=== PATIENT | female | born 1980 | race Caucasian/White ===

== ENCOUNTER → 2018-03-30 14:56 | Outpatient (CLI) | payer MEDICAID, SELFPAY ==
[2018-04-05 13:33] LABS: HPV Reflexed? NOT INDICATED
== END ==
PROVIDERS: Visit Provider Obstetrics & Gynecology
DX: Z12.4 Encounter for screening for malignant neoplasm of cervix (principal)
CPT/HCPCS: 88175; G0145

== ENCOUNTER → 2018-04-27 16:11 | Outpatient (CLI) | payer MEDICAID, SELFPAY ==
[2018-04-30 16:06] LABS: Alternaria tenuis <0.10 kU/L (Class 0); Ash, White <0.10 kU/L (Class 0); Aspergillus fumigatus <0.10 kU/L (Class 0); Bermuda Grass <0.10 kU/L (Class 0); Birch <0.10 kU/L (Class 0); Black Walnut 0.12 kU/L (Class 0/I); Cat Hair / Dander,Stand <0.10 kU/L (Class 0); Cedar, Mountain 0.12 kU/L (Class 0/I); Cladosporium herbarum <0.10 kU/L (Class 0); Cockroach, American <0.10 kU/L (Class 0); Cottonwood 0.27 kU/L (Class 0/I); D farinae Mite <0.10 kU/L (Class 0); D pteronyssinus <0.10 kU/L (Class 0); Dog Epithelia <0.10 kU/L (Class 0); Elm, American White <0.10 kU/L (Class 0); Immunoglobulin E 36 IU/mL (0-100); Maple/Box Elder <0.10 kU/L (Class 0); Mulberry, White <0.10 kU/L (Class 0); Oak, White <0.10 kU/L (Class 0); Pecan <0.10 kU/L (Class 0); Penicillium Notatum <0.10 kU/L (Class 0); Pigweed, Rough <0.10 kU/L (Class 0); Ragweed, Short/Common <0.10 kU/L (Class 0); Russian Thistle <0.10 kU/L (Class 0); Sheep Sorrel <0.10 kU/L (Class 0); Sycamore, American <0.10 kU/L (Class 0); Timothy Grass <0.10 kU/L (Class 0)
[2018-05-01 08:35] LABS: Mouse Urine <0.10 kU/L (Class 0)
--- OUTSIDE RECORDS SUMMARY | 2018-06-23 02:25 | XMS RPT_ITS ---
:1980 Author Organization OHIP Care Team Providers Name Role Phone Chiquita Acosta Attending Unavailable Chiquita Acosta Referring Unavailable Primay Care Physicia, No Primary Care Unavailable [place] Acosta Attending Unavailable Primay Care Physicia, No Primary Care Unavailable Moshe Quinn Attending Unavailable Moshe Quinn Referring Unavailable Primay Care Physicia, No Primary Care Unavailable PROBLEMS PROBLEMS DATE TYPE CONDITION / CODE ATTENDING STATUS SOURCE 05/10/2018 Unknown T78.40XA - [place] Active Ani Allergy, Moshe [facility] unspecified, Hospital initial Repository encounter / T78.40XA(ICD-10) 04/05/2018 Unknown Z12.4 - Chiquita Acosta Active Ani Encounter for Community screening for Hospital malignant Repository neoplasm of cervix / Z12.4(ICD-10) PROCEDURES PROCEDURES No Procedure Records FoundRESULTS RESULTS ,SERUM,HCG QUALI. Collected: Status: F Source: ANI 05/10/2018 3:[address] [facility] REPOSITORY TYPE CODE TESTS RESULT OUT OF REFERENCE UNITS RANGE LAB L700.6700 =>Qualitative mIU/mL Normal HCG Qual < 1 triggr LAB L700.7000 0-9 Nonpreg Negative Normal HCGSQUAL NEGATIVE Performed By: #### L700.6800 #### [place] [facility] [address] [place], [address] PROGESTERONE LEVEL Collected: 05/10/2018 Status: F Source: ANI 3:[address] [facility] REPOSITORY TYPE CODE TESTS RESULT OUT OF REFERENCE UNITS RANGE LAB L509.4001 See Comment ng/mL Progesterone Normal 1.71 Result Comment: Progesterone Reference Table: UNITS Female: Follicular 0.15 - 1.40 ng/mL Luteal 3.34 - 25.56 ng/mL Mid-luteal 4.44 - 28.03 ng/mL Postmenopausal 0.0 - 0.73 ng/mL : 1st Trimester 11.22 - 90.00 ng/mL 2nd Trimester 25.55 - 89.40 ng/mL 3rd Trimester 48.40 -422.50 ng/mL Performed By: #### L509.4001 #### [facility] [address] [place], [place], [address] ALLERGEN RESP. AREA 5 Collected: 04/27/2018 Status: F Source: DORENA 4:[address] [facility] REPOSITORY TYPE CODE TESTS RESULT OUT OF RANGE REFERENCE UNITS LAB L5500.8000 0-100 IU/mL Normal TOTAL igE 36 LAB L5500.9900 . Normal RAST COMMENT Comment Result Comment: Levels of Specific IgE Class Description of Class ----- < 0.10 0 Negative 0.10 - 0.31 0/I Equivocal/Low 0.32 - 0.55 I Low 0.56 - 1.40 II Moderate 1.41 - 3.90 III High 3.91 - 19.00 IV Very High 19.01 - 100.00 V Very High >100.00 Very High LAB L5510.0040 Class 0 kU/L CAT HAIR/DANDER Normal <0.10 LAB L5510.0070 Class 0 kU/L DOG EPITHELIA Normal <0.10 LAB L5520.0020 Class 0 kU/L D FARINAE MITE Normal <0.10 LAB L5520.0030 Class 0 kU/L D PTERONYSSINUS Normal <0.10 LAB L5540.0020 Class 0 kU/L BERMUDA GRASS Normal <0.10 LAB L5540.0190 Class 0 kU/L NILAM GRASS Normal <0.10 LAB L5550.0020 Class 0 kU/L ALTERNARIA TEN Normal <0.10 LAB L5550.0040 Class 0 kU/L ASPERGILLUS FUM Normal <0.10 LAB L5550.0140 Class 0 kU/L CLADOSPOR HERB Normal <0.10 LAB L5550.0340 Class 0 kU/L PEN Notatum Normal <0.10 LAB L5555.0380 Class 0 kU/L COCKROACH,AMER Normal <0.10 LAB L5555.0410 Class 0 kU/L Mouse Urine Normal <0.10 Result Comment: Performed at: - [facility] [address] [id number] Peoplesoft: Pj Diaz MD, Phone: [phone] LAB L5560.0050 Class 0 kU/L GUILLERMINA, Normal WHITE <0.10 LAB L5560.0100 Class 0 kU/L BIRCH Normal <0.10 LAB L5560.0110 Class 0/I kU/L High CEDAR, MOUNTAIN 0.12 LAB L5560.0140 Class 0/I kU/L High [place] 0.27 LAB L5560.0170 Class 0 kU/L ELM,AMER Normal WHITE <0.10 LAB L5560.0310 Class 0 kU/L Normal MAPLE/BOX ELDER <0.10 LAB L5560.0371 Class 0 kU/L Normal MULBERRY, WHITE <0.10 LAB L5560.0400 Class 0 kU/L OAK, Normal WHITE <0.10 LAB L5560.0440 Class 0 kU/L PECAN Normal <0.10 LAB L5560.0550 Class 0 kU/L Normal SYCAMORE, AMER <0.10 LAB L5560.0570 Class 0/I kU/L High BLACK WALNUT 0.12 LAB L5580.0210 Class 0 kU/L PIGWEED, Normal ROUGH <0.10 LAB L5580.0260 Class 0 kU/L RAGWEED Normal SH/COM <0.10 LAB L5580.0320 Class 0 kU/L SHEEP Normal SORREL <0.10 LAB L5580.0360 Class 0 kU/L INDIAN Normal THISTLE <0.10 Performed By: #### L5500.0700 #### [facility] (refer to report for specific site) refer to report for address and phone number MISCELLANEOUS LAB Collected: 04/27/2018 Status: F Source: ANI PROCEDURE 4:[address] [facility] REPOSITORY Order Comment: Test(s) Ordered: [id number] ALLERGEN PROFILE SER RT TYPE CODE TESTS RESULT OUT OF RANGE REFERENCE UNITS LAB L801.1541 Normal [facility] LAB TEST Result Comment: TEST RESULT UNITS REF INTERVAL Allergen Profile, Food-Basic Class Description 01 Levels of Specific IgE Class Description of Class ----- < 0.10 0 Negative 0.10 - 0.31 0/I Equivocal/Low 0.32 - 0.55 I Low 0.56 - 1.40 II Moderate 1.41 - 3.90 III High 3.91 - 19.00 IV Very High 19.01 - 100.00 V Very High >100.00 Very High M497-GmH Egg White <0.10 kU/L Class 0 Q995-TjW Milk <0.10 kU/L Class 0 Z707-PtT Codfish <0.10 kU/L Class 0 R735-OmZ Wheat <0.10 kU/L Class 0 B163-CcJ Peanut <0.10 kU/L Class 0 I381-EkC Soybean <0.10 kU/L Class 0 TESTING PERFORMED AT [facility]. ORIGINAL REPORT ON FILE IN LAB CONTAINS ADDITIONAL TEST SITE INFORMATION. Performed By: #### L801.1541 #### [facility] [address] [place], [address] PAP I-G W/RFX HRHPV Collected: 03/30/2018 Status: F Source: ANI 10:[address] [facility] REPOSITORY Order Comment: CYTOLOGY INFORMATION: - CLINICAL INFORMATION: - DATE LMP/MENOPAUSE: UNK/LACTATING LMP - COLLECTION VIAL: Thin Prep Vial - STUDIO TECHNICIAN VIDEO OPERATOR SOURCE: CERVICAL/ENDOCERVICAL - COLLECTION TECHNIQUE: BRUSH/SPATULA Specimen Comment: [id number] Specimen Comment: Source.............Cervix;Endocervix Specimen Comment: Other..............Lactating Specimen Comment: No. of containers..01 ThinPrep Vial TYPE CODE TESTS RESULT OUT OF RANGE REFERENCE UNITS LAB L7400.0800 . Normal DIAGN Comment Result Comment: NEGATIVE FOR INTRAEPITHELIAL LESION AND MALIGNANCY. THIS SPECIMEN WAS RESCREENED PART OF OUR DRILLING AND PRODUCTION SUPERINTENDENT PROGRAM. LAB L7400.0900 . Normal ADEQ Comment Result Comment: Satisfactory for evaluation. Endocervical and/or squamous metaplastic cells (endocervical component) are present. LAB L7400.1400 . Normal PERFORM Comment Result Comment: Obey Aviles, Order Entry Representative (ASCP) LAB L7400.1500 . Normal QC Comment REV Result Comment: Patricia Pastrana, Order Entry Representative (ASCP) LAB L7400.2575 . Normal TEST METHOD Comment Result Comment: This liquid based ThinPrep(R) pap test was screened with the use of an image guided system. LAB L7400.2600 . Normal . COMM LAB L7400.2700 . Normal PAPSMR Comment Result Comment: The Pap smear is a screening test designed to aid in the detection of premalignant and malignant conditions of the uterine cervix. It is not a diagnostic procedure and should not be used as the sole means of detecting cervical cancer. Both false-positive and false-negative reports do occur. LAB L7400.2800 . Normal HPV RFLX Comment Result Comment: The HPV DNA reflex criteria were not met with this specimen result therefore, no HPV testing was performed. Performed at: [facility] [place] [id number] Peoplesoft: Elizabeth Jean-Baptiste MD, Phone: [phone] Performed By: #### L7400.0350 #### [facility] (refer to report for specific site) refer to report for address and phone number ALLERGIES ALLERGIES DATE TYPE / CODE NAME / CODE REACTION SEVERITY SOURCE 02/13/2017 Drug No Known Unknown Ani [facility] Allergy/4160 Allergies/F00 Hospital 10379(SNOMED 8805081(RXNOR Repository CT) M) ENCOUNTERS ENCOUNTERS ADMIT/DISCHARGE ACCOUNT ADMITTING ENCOUNTER LOCATION SOURCE NUMBER CLASS 05/10/2018 [id number] Ambulatory Ani Ani 4 [facility] ing:LAB Repository 04/27/2018 [id number] Ambulatory [place] 1 [facility] ing:LAB Repository 03/30/2018 [id number] Ambulatory [place] 4 [facility] ing:LABSPEC Repository PAYERS PAYERS ENCOUNTER GUARANTOR PAYER SUBSCRIBER SOURCE 05/10/2018 MAUR[place] L Primary MAURA L [place] [id number] CANAL Insurance:[place] [facility] [id number] Hospital [address]Umc: [phone]) PLANPolicy Number: Repository [phone] () [id number] Date:0730-88-77LG [address] [address]: 05/10/2018 Secondary NOT GIVENUNK [place] Insurance:SELF PAY [facility] Number: Effective Repository Date:2018-05-10 04/27/2018 MAURA [id number] Primary MAURA NOTTDOB: [place] [facility], Insurance:[employer] [id number] [facility]ungo [facility] [address]Jeo: [facility] PLANPolicy Number: Repository () [id number] Date:[id number] [address]EJ: 04/27/2018 Secondary NOT GIVENUNK [place] Insurance:SELF PAY [facility] Number: Effective Repository Date:2018-04-27 03/30/2018 MAURA [id number] Primary MAURA NOTTDOB: [place] CANAL [address], Insurance:[employer] [id number] Pungo Hospital [address]Gyr: [facility] PLANPolicy Number: Repository () [id number] Date:[id number] [address]ENTER[facility] [address]WH: 03/30/2018 Secondary NOT GIVENUNK [place] Insurance:SELF PAY [facility] Number: Effective Repository Date:2018-03-30
== END ==
PROVIDERS: Referring Provider Otolaryngology; Visit Provider Otolaryngology
DX: T78.40XA Allergy, unspecified, initial encounter (principal)
CPT/HCPCS: 36415; 82785; 86003

== ENCOUNTER → 2018-05-10 15:06 | Outpatient (CLI) | payer MEDICAID, SELFPAY ==
[2017-02-13 05:36] VITALS: BMI 29.1
[2018-05-10 16:42] LABS: Pregnancy, Serum, hCG Quali. NEGATIVE Negative (0-9 Nonpreg)
[2018-05-10 16:47] LABS: Progesterone Level 1.71 ng/mL (See Comment)
--- OUTSIDE RECORDS SUMMARY | 2018-06-26 22:38 | XMS RPT_ITS ---
[...] T78.40XA - [place] Active Ani Allergy, Moshe Replaced By [facility] unspecified, Hospital initial Repository encounter / T78.40XA(ICD-10) 04/05/2018 Unknown Z12.4 - [place] Active Ani Encounter for Community screening for Hospital malignant Repository neoplasm of cervix / Z12.4(ICD-10) PROCEDURES PROCEDURES No Procedure Records FoundRESULTS RESULTS ,SERUM,HCG QUALI. Collected: Status: F Source: ANI 05/10/2018 3:24 PM [facility] REPOSITORY TYPE CODE TESTS RESULT OUT OF REFERENCE UNITS RANGE LAB L700.6700 =>Qualitative mIU/mL Normal HCG Qual < 1 triggr LAB L700.7000 0-9 Nonpreg Negative Normal HCGSQUAL NEGATIVE Performed By: #### L700.6800 #### [place] [facility] [address] [place], [address] PROGESTERONE LEVEL Collected: 05/10/2018 Status: F Source: ANI 3:24 PM [facility] REPOSITORY TYPE CODE TESTS RESULT OUT OF [...] -422.50 ng/mL Performed By: #### L509.4001 #### [facility] [address] [place], [place], [address] ALLERGEN RESP. AREA 5 Collected: 04/27/2018 Status: F Source: MONTROSE 4:33 PM [facility] REPOSITORY TYPE CODE TESTS RESULT OUT OF [...] <0.10 Result Comment: Performed at: - [facility] [address] [id number] Binder Chainstitch: Pj Diaz MD, Phone: [phone] LAB L5560.0050 Class 0 kU/L GUILLERMINA, Normal [...] SORREL <0.10 LAB L5580.0360 Class 0 kU/L ERITREAN Normal THISTLE <0.10 Performed By: #### L5500.0700 #### [facility] (refer to report for specific site) refer to report for address and phone number MISCELLANEOUS LAB Collected: 04/27/2018 Status: F Source: ANI PROCEDURE 4:33 PM [facility] REPOSITORY Order Comment: Test(s) Ordered: [id number] ALLERGEN PROFILE SER RT TYPE CODE TESTS RESULT OUT OF RANGE REFERENCE UNITS LAB L801.1541 Normal [facility] LAB TEST Result Comment: TEST RESULT UNITS REF INTERVAL Allergen Profile, Food-Basic Class Description 01 Levels of Specific IgE Class Description of Class ----- < 0.10 0 Negative 0.10 - 0.31 0/I Equivocal/Low 0.32 - 0.55 I Low 0.56 - 1.40 II Moderate 1.41 - 3.90 III High 3.91 - 19.00 IV Very High 19.01 - 100.00 V Very High >100.00 Very High Z902-BrK Egg White <0.10 kU/L Class 0 C127-QeP Milk <0.10 kU/L Class 0 F058-ByZ Codfish <0.10 kU/L Class 0 B101-KiQ Wheat <0.10 kU/L Class 0 W005-ZoW Peanut <0.10 kU/L Class 0 M574-TfQ Soybean <0.10 kU/L Class 0 TESTING PERFORMED AT [facility]. ORIGINAL REPORT ON FILE IN LAB CONTAINS ADDITIONAL TEST SITE INFORMATION. Performed By: #### L801.1541 #### [facility] [address] [place], [address] PAP I-G W/RFX HRHPV Collected: 03/30/2018 Status: F Source: ANI 10:30 AM [facility] REPOSITORY Order Comment: CYTOLOGY INFORMATION: - CLINICAL INFORMATION: - DATE LMP/MENOPAUSE: UNK/LACTATING LMP - COLLECTION VIAL: Thin Prep Vial - CARPENTRY PROFESSIONAL SOURCE: CERVICAL/ENDOCERVICAL - COLLECTION TECHNIQUE: BRUSH/SPATULA Specimen Comment: [id number] Specimen Comment: Source.............Cervix;Endocervix Specimen Comment: Other..............Lactating Specimen Comment: No. of containers..01 ThinPrep Vial TYPE CODE TESTS RESULT OUT OF RANGE REFERENCE UNITS LAB L7400.0800 . Normal DIAGN Comment Result Comment: NEGATIVE FOR INTRAEPITHELIAL LESION AND MALIGNANCY. THIS SPECIMEN WAS RESCREENED PART OF OUR EVENT PROMOTIONS COORDINATOR PROGRAM. LAB L7400.0900 . Normal ADEQ Comment Result Comment: Satisfactory for evaluation. Endocervical and/or squamous metaplastic cells (endocervical component) are present. LAB L7400.1400 . Normal PERFORM Comment Result Comment: Obey Aviles, Director Of Primary (ASCP) LAB L7400.1500 . Normal QC Comment REV Result Comment: Patricia Pastrana, Director Of Primary (ASCP) LAB L7400.2575 . Normal TEST METHOD [...] no HPV testing was performed. Performed at: [facility] [place] [id number] Binder Chainstitch: Elizabeth Jean-Baptiste MD, Phone: [phone] Performed By: #### L7400.0350 #### [facility] (refer to report for specific site) refer to report for address and phone number ALLERGIES ALLERGIES DATE TYPE / CODE NAME / CODE REACTION SEVERITY SOURCE 02/13/2017 Drug No Known Unknown Ani Replaced By [facility] Allergy/4160 Allergies/F00 Hospital 05132(SNOMED 0862974(RXNOR Repository CT) M) ENCOUNTERS ENCOUNTERS ADMIT/DISCHARGE ACCOUNT ADMITTING ENCOUNTER LOCATION SOURCE NUMBER CLASS 05/10/2018 [id number] Ambulatory Ani Ani 4 [facility] ing:LAB Repository 04/27/2018 [id number] Ambulatory [place] An[place] 1 [facility] ing:LAB Repository 03/30/2018 [id number] Amb[place] 4 [facility] ing:LABSPEC Repository PAYERS PAYERS ENCOUNTER GUARANTOR PAYER SUBSCRIBER SOURCE 05/10/2018 MAURA L Primary MAURA L An[place] [id number] CANAL Insurance:[place] [facility]ITAL[facility]: [facility] [id number] Hospital [address]Oqw: (303) PLANPolicy Number: Repository [phone] () [id number] Date:8777-05-40LN [address] [address]WG: 05/10/2018 Secondary NOT GIVENUNK [place] Insurance:SELF [facility]Y [facility] Number: Effective Repository Date:2018-05-10 04/27/2018 MAURA [id number] Primary MAURA NOTTDOB: [place] [facility], Insurance:[place] [id number] [facility] [place] [address]Brb: [facility] PLANPolicy Number: Repository () [id number] Date:[id number] [address]LI: 04/27/2018 Secondary NOT GIVENUNK [place] Insurance:SELF PAY [facility] Number: Effective Repository Date:2018-04-27 03/30/2018 AMURA [id number] Primary MAURA NOTTDOB: [place] [address] [address], Insurance:[employer] [id number] Health [place] [address]Eae: [facility] PLANPolicy Number: Repository () [id number] Date:4450-66-67[address] [address]LH: 03/30/2018 Secondary NOT GIVENUNK [place] Insurance:SELF PAY [facility] Number: Effective Repository Date:2018-03-30
== END ==
PROVIDERS: Referring Provider Obstetrics & Gynecology; Visit Provider Obstetrics & Gynecology
DX: Z30.430 Encounter for insertion of intrauterine contraceptive device (principal)
CPT/HCPCS: 36415; 84144; 84703

== ENCOUNTER → 2020-11-19 15:12 | Outpatient (CLI) | payer MEDICAID, SELFPAY ==
[2017-02-13 05:36] VITALS: BMI 29.1
[2020-11-19 16:36] LABS: Vitamin B12 825 pg/mL (211-911); Vitamin D,25 Hydroxy 27.5 ng/mL
[2020-11-19 16:57] LABS: Estradiol 38.2 pg/mL; Ferritin 32 ng/mL (8-252); Follicle Stimulating Hormone 4.5 mIU/mL; Luteinizing Hormone 3.6 mIU/mL; Prolactin 11.8 ng/mL; T4 Free Direct 1.04 ng/dL (0.76-1.46); Thyroid Stim Hormone (TSH) 0.83 uIU/mL (0.358-3.74)
[2020-11-24 20:12] LABS: DHEA Sulfate 95.7 ug/dL (57.3-279.2)
[2020-11-28 14:49] LABS: Testosterone Free 0.6 pg/mL (0.0-4.2)
== END ==
PROVIDERS: Visit Provider Student in an Organized Health Care Education/Training Program
DX: N92.6 Irregular menstruation, unspecified (principal); L65.9 Nonscarring hair loss, unspecified
CPT/HCPCS: 36415; 82306; 82607; 82627; 82670; 82728; 82746; 83001; 83002; 84146; 84402; 84439; 84443; 82626

== ENCOUNTER → 2022-09-01 | Outpatient (CLI) | payer MEDICAID, SELFPAY ==
[2022-09-07 14:39] LABS: HPV APTIMA, High Risk Negative (Negative)
== END | disposition home or self-care (01) ==
LOC: LABSPEC 11:36
PROVIDERS: Visit Provider Student in an Organized Health Care Education/Training Program
DX: Z12.4 Encounter for screening for malignant neoplasm of cervix (principal)
CPT/HCPCS: 87624; 88175; G0145

== ENCOUNTER → 2022-11-12 | Outpatient (CLI) | payer MEDICAID, SELFPAY ==
--- NOTE | 2022-11-12 16:54 | BI_ITS ---
MAMMOGRAPHY - BILATERAL SCREENING REASON FOR EXAM: Female, 41 years old. Routine annual screening examination. PERTINENT HISTORY: Non-contributory. TECHNIQUE: Digital bilateral breast tacho (3D mammographic acquisition) in the CC and MLO projections. 2-D mediolateral oblique (MLO) and craniocaudad (CC) views of both breasts were obtained. CAD: Full Field Digital Mammography with Computer Added Detection was performed. COMPARISON: None. Baseline examination. FINDINGS: Breast Composition: The breasts are heterogeneously dense, which may obscure small masses. There are no dominant masses or suspicious calcifications. No other significant abnormalities are identified. There has been no significant change since the prior study. BI/SCRN MAMM (CAD)W/TACHO BILAT IMPRESSION: Stable bilateral screening mammogram. Yearly follow-up mammogram recommended. (A) ASSESSMENT CATEGORY: BIRADS Category 1: Negative. A letter regarding these results will be sent to the patient by the facility within 30 days. Approximately 10% of breast cancers are not detected by mammography. A normal mammogram should not delay biopsy of a clinically suspicious abnormality. [id number] Electronically Signed: Arias Jang MD at 8:28 EDT ,
== END | disposition home or self-care (01) ==
LOC: OPBI 11-13 08:03
PROVIDERS: Referring Provider Student in an Organized Health Care Education/Training Program; Visit Provider Student in an Organized Health Care Education/Training Program
DX: Z12.31 Encounter for screening mammogram for malignant neoplasm of breast (principal)
CPT/HCPCS: 77063; 77067